=== PATIENT | female | born 1955 | race Caucasian/White ===

== ENCOUNTER 2017-11-11 19:43 | Observation (INO) | payer OTHER ==
[~2017-11-11] VITALS: Ht 157.5 cm; Wt 91.3 kg
[2017-11-11 19:59] LABS: BASOPHIL (%) 0.6 % (0-1); BASOPHIL COUNT 0.1 K/uL (0-0.1); EOSINOPHIL (%) 1.4 % (0-5); EOSINOPHIL COUNT 0.2 K/uL (0-0.3); HEMATOCRIT 45.6 % (36.0-46.0); HEMOGLOBIN 15.6 G/DL (11.9-15.5); LYMPHOCYTE (%) 40.9 % (15-42); LYMPHOCYTE COUNT 5.1 K/uL (1.0-2.8); MCH 32.8 PG (29.0-34.0); MCHC 34.2 G/DL (30.0-36.0); MONOCYTE COUNT 0.6 K/uL (0-0.8); NEUTROPHIL (%) 51.1 % (45-76); NEUTROPHIL COUNT 6.4 K/uL (1.8-6.4); PLATELET COUNT 328 K/uL (156-360); RBC DIS.WIDTH-CV 12.7 % (11.8-14.6); RBC DIS.WIDTH-SD 44.9 % (39-53); RED BLOOD COUNT 4.75 M/uL (3.80-5.20); WHITE BLOOD COUNT 12.5 K/uL (4.1-10.2)
[2017-11-11 20:23] LABS: AMYLASE 28 IU/L (1-118); CHLORIDE 104 MEQ/L (99-109); POTASSIUM 3.3 MEQ/L (3.7-5.4); SODIUM 137 MEQ/L (136-147)
[2017-11-11 20:29] LABS: CREATININE 0.7 MG/DL (0.6-1.3); GFR ESTIMATE (CALCULATED) > 59 mL/min/; GLUCOSE 178 mg/dL (70-99); LIPASE 15 U/L (1.0-51.0); SERUM ETHYL ALCOHOL 175 mg/dL; UREA NITROGEN (BUN) 14 mg/dL (9-23)
[2017-11-11 22:04] LABS: APPEARANCE CLEAR ((CLEAR)); BILIRUBIN NEGATIVE; BLOOD SMALL; COLOR STRAW ((YELLOW)); GLUCOSE (STRIP) NEGATIVE; KETONES NEGATIVE; LEUKOCYTES NEGATIVE; NITRITE NEGATIVE; PROTEIN (STRIP) 30; SPECIFIC GRAVITY 1.041 (1.000-1.030); UROBILINOGEN 0.2 MG/DL (0.2-1.0)
[2017-11-11] MEDS ORDERED: MAGNESIUM500 MG PO (22:04)
[2017-11-11 22:07] LABS: BACTERIA NONE SEEN /HPF; EPITHELIAL CELLS RARE /HPF; MUCUS TRACE /LPF; RED BLOOD CELLS 0-5 /HPF (0-5); UCUL ADDED? NO; WHITE BLOOD CELLS 0-5 /HPF (0-5)
[2017-11-11] MEDS ORDERED: VITAMIN D32000 UNI1 PO (22:07)
[2017-11-11] MEDS ORDERED: [UNRECOGNIZED DRUG - OTHER] PO (22:09)
[2017-11-11] MEDS ORDERED: IODINE PO (22:16)
[2017-11-11] MEDS ORDERED: [UNRECOGNIZED DRUG - REMARK] (22:17)
[2017-11-11 22:47] LABS: AMPHETAMINE NEGATIVE (500 ng/mL); BARBITURATES NEGATIVE (200 ng/mL); BENZODIAZEPINES PRESUMPTIVE POSITIVE (150 ng/mL); BUPRENORPHINE NEGATIVE (10 ng/mL); COCAINE NEGATIVE (150 ng/mL); METHADONE NEGATIVE (200 ng/mL); METHAMPHETAMINE NEGATIVE (500 ng/mL); OPIATES (MORPHINE) NEGATIVE (100 ng/mL); OXYCODONE NEGATIVE (100 ng/mL); PHENCYCLIDINE NEGATIVE (25 ng/mL); PROPOXYPHENE NEGATIVE (300 ng/mL); THC CANNABINOIDS NEGATIVE (50 ng/mL); TRICYCLIC ANTIDEPRESSANTS NEGATIVE (300 ng/mL)
[2017-11-11 23:17] LABS: BENZODIAZEPINES, URINE SCREEN Negative (200 ng/mL)
[2017-11-12] VITALS (7 sets, daily range): BP systolic 105–162; BP diastolic 64–88
[2017-11-12 07:00] LABS: HEMATOCRIT 41.8 % (36.0-46.0); MCH 31.9 PG (29.0-34.0); MCHC 33.5 G/DL (30.0-36.0); MCV 95.2 FL (83-99); PLATELET COUNT 271 K/uL (156-360); RBC DIS.WIDTH-CV 12.9 % (11.8-14.6); RBC DIS.WIDTH-SD 45.5 % (39-53); RED BLOOD COUNT 4.39 M/uL (3.80-5.20); WHITE BLOOD COUNT 11.6 K/uL (4.1-10.2)
[2017-11-12 07:22] LABS: ALBUMIN 3.9 G/DL (3.2-4.8); ALKALINE PHOSPHATASE 70 IU/L (3-129); ALT (GPT) 57 IU/L (3-49); AST (GOT) 52 IU/L (2-34); CHLORIDE 104 MEQ/L (99-109); CREATININE 0.5 MG/DL (0.6-1.3); GFR ESTIMATE (CALCULATED) > 59 mL/min/; SODIUM 140 MEQ/L (136-147); TOTAL BILIRUBIN 0.6 MG/DL (0.0-1.0); TOTAL PROTEIN 6.3 G/DL (6.4-8.3); UREA NITROGEN (BUN) 11 mg/dL (9-23)
[2017-11-12 07:23] LABS: GLUCOSE 103 mg/dL (70-99); POTASSIUM 4.1 MEQ/L (3.7-5.4)
[2017-11-13 05:20] VITALS: BP 123/79
[2017-11-13 06:30] LABS: BASOPHIL (%) 0.3 % (0-1); EOSINOPHIL COUNT 0.1 K/uL (0-0.3); HEMATOCRIT 37.9 % (36.0-46.0); HEMOGLOBIN 12.6 G/DL (11.9-15.5); IMMATURE GRANULOCYTE (%) 0.3 % (0.0-0.7); LYMPHOCYTE (%) 20.9 % (15-42); LYMPHOCYTE COUNT 2.1 K/uL (1.0-2.8); MCH 32.1 PG (29.0-34.0); MCHC 33.2 G/DL (30.0-36.0); MCV 96.4 FL (83-99); MONOCYTE (%) 7.5 % (3-12); MONOCYTE COUNT 0.8 K/uL (0-0.8); PLATELET COUNT 221 K/uL (156-360); RBC DIS.WIDTH-CV 13.2 % (11.8-14.6); RBC DIS.WIDTH-SD 47.3 % (39-53); RED BLOOD COUNT 3.93 M/uL (3.80-5.20)
[2017-11-13] MEDS ORDERED: COLACE100 MG PO (09:30)
[2017-11-13] MEDS ORDERED: ENDOCET 5-3251 EACH PO (09:30)
[2017-11-13] MEDS ORDERED: LIDODERM 5% P1 PATCH TD (09:30)
[2017-11-13 15:13] VITALS: BP 108/63
[2017-11-13 19:34] VITALS: BP 115/68
[2017-11-13 23:10] VITALS: BP 136/61
[2017-11-14 04:23] VITALS: BP 137/68
[2017-11-14 07:25] VITALS: BP 136/85
[2017-11-14 11:14] VITALS: BP 133/64
== END 2017-11-14 16:10 | disposition home or self-care (01) ==
LOC: EME 19:43 → EDBD 19:43 → TRA 19:43 → 3EAST 23:17 → EDOF 23:17 → 3EAST 23:17 → ENRESERV 23:18 → 3EAST 11-12 01:18
PROVIDERS: Emergency Medicine; Physician Assistant; Surgery
DX: S36.116A Major laceration of liver, initial encounter (principal); S22.20XA Unspecified fracture of sternum, initial encounter for closed fracture; S22.41XA Multiple fractures of ribs, right side, initial encounter for closed fracture; Z90.49 Acquired absence of other specified parts of digestive tract; Z98.1 Arthrodesis status; F17.200 Nicotine dependence, unspecified, uncomplicated; F10.129 Alcohol abuse with intoxication, unspecified; Y90.6 Blood alcohol level of 120-199 mg/100 ml; V49.88XA Car occupant (driver) (passenger) injured in other specified transport accidents, initial encounter; Y92.410 Unspecified street and highway as the place of occurrence of the external cause
CPT/HCPCS: 70450; 71045; 71260; 72125; 72129; 72132; 73030; 74177; 80048; 80053; 81003; 82150; 83690; 84999; 85025; 85027; 86850; 86900; 86901; 99281; 99285; G0378; G0480; J2405; J3010; J7030